=== PATIENT | female | born 1990 | race Caucasian/White ===

== ENCOUNTER 2018-12-06 06:30 | Inpatient (IN) ==
--- NOTE | 2018-12-06 07:38 | ED ---
HPI General Chief Complaint: Psychiatric Symptoms Stated Complaint: vol psych eval Time Seen by Provider: 12/06/18 07:20 History of Present Illness HPI Narrative: This is a 28-year-old female with history of reported depression , presents here today after taking multiple pills including Lorazepam in order to harm herself. Patient states she was trying to kill herself. She reportedly states she is willing to be evaluated voluntarily. States last night around 9 PM she took multiple pills including lorazepam and pain pills. She states she was intensely trying to hurt herself. She reports that she is got multiple issues happening to her right now that have caused her to try to take her life. She reports that she is previously tried to hurt herself in the past. There are no other complaints at the time of examination. Related Data Home Medications Medication Instructions Recorded Confirmed cariprazine [Vraylar] 3 mg PO DAILY 12/06/18 12/06/18 clomipramine 75 mg PO DAILY 12/06/18 12/06/18 cyclobenzaprine 10 mg PO TID 12/06/18 12/06/18 lisdexamfetamine [Vyvanse] 70 mg PO DAILY 12/06/18 12/06/18 lorazepam [Ativan] 0.5 mg PO TID 12/06/18 12/06/18 naproxen 500 mg PO BID PRN 12/06/18 12/06/18 Allergies Allergy/AdvReac Type Severity Reaction Status Date / Time latex Allergy Severe Rash, Verified 12/06/18 06:35 Localized shellfish derived Allergy Anaphylaxis Verified 12/06/18 07:15 DAIRY PRODUCTS AdvReac Severe Shortness Uncoded 12/06/18 06:35 of Breath Review of Systems ROS: all other systems reviewed are negative Constitutional Reports system reviewed and no additional complaints, except as docu Eyes Reports system reviewed and no additional complaints, except as docu ENT Reports system reviewed and no additional complaints, except as docu Cardiovascular Reports system reviewed and no additional complaints, except as docu Respiratory Reports system reviewed and no additional complaints, except as docu Gastrointestinal Reports system reviewed and no additional complaints, except [facility] Genitourinary Reports system reviewed and no additional complaints, except as [facility] Musculoskeletal Reports system reviewed and no additional complaints, except as [facility] Neurologic Reports system reviewed and no additional complaints, [facility] Medical History Medical History Acute (undifferentiated) schizophrenia (Acute) Adult ADHD (Acute) FH: cholecystectomy (Acute) Herniated disc (Acute) Irritable bowel syndrome (Acute) Obsessive compulsive disorder (Acute) PTSD (post-traumatic stress disorder) (Acute) Sciatic nerve pain (Acute) Scoliosis (Acute) Surgical History Surgical History History of tonsillectomy (Acute) Social History Social History Substance History: Active Abuse Second Hand Smoke Exposure: No Smoking Status: Never smoker How Often Do You Have a Drink Containing Alcohol: Monthly or less Recent Travel in [facility] within the Last 8 Weeks: No Recent Out of Country Travel within the Last 8 Weeks: No Substance Abuse Detail Marijuana: Substance Use Status: Active Route Used Substance Abuse: Inhalation Immunization History Tetanus Immunization: >5 Years Exam Narrative Exam Narrative: GENERAL: Well-developed well-nourished female in no acute respiratory distress. Patient is awake alert answering questions appropriately. SKIN: Focused skin assessment warm/dry. HEAD: Atraumatic. Normocephalic. EYES: Pupils equal and round. No scleral icterus. No injection or drainage. ENT: No nasal bleeding or discharge. Mucous membranes pink and moist. NECK: Trachea midline. Supple. CARDIOVASCULAR: Regular rate and rhythm. No murmur appreciated. RESPIRATORY: No accessory muscle use. Clear to auscultation. Breath sounds equal bilaterally. GASTROINTESTINAL: Abdomen soft, non-tender, nondistended. Hepatic and splenic margins not palpable. MUSCULOSKELETAL: No obvious deformities. No clubbing. No cyanosis. No edema. NEUROLOGICAL: Awake and alert. No obvious cranial nerve deficits. Motor grossly within normal limits. Normal speech. Course Initial Documented Vital Signs Temperature 97.1 F L 12/06/18 06:35 Pulse Rate 92 H 12/06/18 06:35 Respiratory Rate 14 12/06/18 06:35 Blood Pressure 117/79 12/06/18 06:35 Pulse Oximetry 100 12/06/18 06:35 Last Documented Vital Signs Temperature 97.1 F L 12/06/18 06:35 Pulse Rate 92 H 12/06/18 06:35 Respiratory Rate 14 12/06/18 06:35 Blood Pressure 117/79 12/06/18 06:35 Pulse Oximetry 100 12/06/18 06:35 Medical Decision Making MDM Narrative Medical decision making narrative: 28-year-old female presents today after intentional ingestion of multiple medications including lorazepam. Patient states she was trying to kill herself. Patient is awake alert appropriate. Poison control was notified and recommended repeat EKG and 2 hours and observation. Patient will be medically cleared. She has been placed on a Lin act by this physician despite her being willing to voluntarily be evaluated. Concern is that she may change her mind and given her attempt, she would need to be evaluated by psychiatry. Medical Screen Exam Complete: Yes Emergency Medical Condition: Yes Differential Diagnosis Differential Diagnosis: Some overdose versus suicidal ideation versus acute life stressors Lab Data Result diagrams: 12/06/18 07:27 12/06/18 07:27 Lab Results 12/06/18 12/06/18 12/06/18 Range/Units 07:27 07:27 07:27 WBC 5.9 (4.0-11.0) th/mm3 RBC 4.05 (4.00-5.30) mil/mm3 Hgb 12.4 (11.6-15.3) gm/dL Hct 36.7 (35.0-46.0) % MCV 90.6 (80.0-100.0) fL MCH 30.7 (27.0-34.0) pg MCHC 33.9 (32.0-36.0) % RDW 12.6 (11.6-17.2) % Plt Count 199 (150-450) th/mm3 MPV 8.2 (7.0-11.0) fL Neut % (Auto) 55.3 (16.0-70.0) % Lymph % (Auto) 36.2 (9.0-44.0) % [place] % (Auto) 7.6 (0.0-8.0) % Eos % (Auto) 0.2 (0.0-4.0) % Baso % (Auto) 0.7 (0.0-2.0) % Neut # (Auto) 3.2 (1.8-7.7) th/mm3 Lymph # (Auto) 2.1 (1.0-4.8) th/mm3 [place] # (Auto) 0.4 (0.0-0.9) th/mm3 Eos # (Auto) 0.0 (0.0-0.4) th/mm3 Baso # (Auto) 0.0 (0.0-0.2) th/mm3 WBC Differential . Differential Comment Auto diff final Sodium 142 (136-145) meq/L Potassium 4.5 (3.5-5.1) meq/L Chloride 108 H (98-107) meq/L Carbon Dioxide 28.9 (21.0-32.0) meq/L Anion Gap 5 (5-15) meq/L BUN 4 L (7-18) mg/dL Creatinine 0.64 (0.50-1.00) mg/dL Estimated GFR Greater than 89 (>89) mL/min Random Glucose 82 (74-106) mg/dL Calcium 8.6 (8.5-10.1) mg/dL Magnesium 2.1 (1.5-2.5) mg/dL Total Bilirubin 0.6 (0.2-1.0) mg/dL AST 6 L (15-37) U/L ALT 12 (10-53) U/L Alkaline Phosphatase 53 (45-117) U/L Total Protein 6.5 (6.4-8.2) g/dL Albumin 4.0 (3.4-5.0) g/dL TSH 3.020 (0.358-3.740) uIU/mL Salicylates Less than 1.7 L (2.8-20.0) mg/dL Urine Opiates Screen (Neg) Acetaminophen Less than 2.0 L (10.0-30.0) mcg/mL Ur Barbiturates Screen (Neg) Ur Amphetamines Screen (Neg) U Benzodiazepines Scrn (Neg) Urine Cocaine Screen (Neg) U Cannabinoids Screen (Neg) Serum Alcohol Less than 3 (0-5) mg/dL 12/06/18 Range/Units 07:51 WBC (4.0-11.0) th/mm3 RBC (4.00-5.30) mil/mm3 Hgb (11.6-15.3) gm/dL Hct (35.0-46.0) % MCV (80.0-100.0) fL MCH (27.0-34.0) pg MCHC (32.0-36.0) % RDW (11.6-17.2) % Plt Count (150-450) th/mm3 MPV (7.0-11.0) fL Neut % (Auto) (16.0-70.0) % Lymph % (Auto) (9.0-44.0) % [place] % (Auto) (0.0-8.0) % Eos % (Auto) (0.0-4.0) % Baso % (Auto) (0.0-2.0) % Neut # (Auto) (1.8-7.7) th/mm3 Lymph # (Auto) (1.0-4.8) th/mm3 [place] # (Auto) (0.0-0.9) th/mm3 Eos # (Auto) (0.0-0.4) th/mm3 Baso # (Auto) (0.0-0.2) th/mm3 WBC Differential Differential Comment Sodium (136-145) meq/L Potassium (3.5-5.1) meq/L Chloride (98-107) meq/L Carbon Dioxide (21.0-32.0) meq/L Anion Gap (5-15) meq/L BUN (7-18) mg/dL Creatinine (0.50-1.00) mg/dL Estimated GFR (>89) mL/min Random Glucose (74-106) mg/dL Calcium (8.5-10.1) mg/dL Magnesium (1.5-2.5) mg/dL Total Bilirubin (0.2-1.0) mg/dL AST (15-37) U/L ALT (10-53) U/L Alkaline Phosphatase (45-117) U/L Total Protein (6.4-8.2) g/dL Albumin (3.4-5.0) g/dL TSH (0.358-3.740) uIU/mL Salicylates (2.8-20.0) mg/dL Urine Opiates Screen Neg (Neg) Acetaminophen (10.0-30.0) mcg/mL Ur Barbiturates Screen Neg (Neg) Ur Amphetamines Screen Neg (Neg) U Benzodiazepines Scrn Neg (Neg) Urine Cocaine Screen Neg (Neg) U Cannabinoids Screen Neg (Neg) Serum Alcohol (0-5) mg/dL Discharge Plan Discharge Disposition Patient Disposition: ED Admit(ED Internal Use Only) Discharge Details Diagnosis: Intentional overdose of drug in tablet form, Suicidal ideation Physicians Team ED Provider: Ricardo Basurto Rxs /Orders / Referrals /Forms Prescriptions: No Action cyclobenzaprine 10 mg Tablet 10 mg PO TID RF: 0 clomipramine 75 mg Capsule 75 mg PO DAILY RF: 0 lorazepam [Ativan] 0.5 mg Tablet 0.5 mg PO TID RF: 0 lisdexamfetamine [Vyvanse] 70 mg Capsule 70 mg PO DAILY RF: 0 naproxen 500 mg Tablet 500 mg PO BID PRN (Reason: Pain) RF: 0 cariprazine [Vraylar] 3 mg Capsule 3 mg PO DAILY RF: 0 Status ED Status: With Doctor
[2018-12-06 07:39] LABS: Baso % (Auto) 0.7 % (0.0-2.0); Eos % (Auto) 0.2 % (0.0-4.0); Hematocrit 36.7 % (35.0-46.0); Hemoglobin 12.4 gm/dL (11.6-15.3); Lymph # (Auto) 2.1 th/mm3 (1.0-4.8); Lymph % (Auto) 36.2 % (9.0-44.0); Mean Corpuscular HGB Conc 33.9 % (32.0-36.0); Mean Corpuscular Hemoglobin 30.7 pg (27.0-34.0); Mean Corpuscular Volume 90.6 fL (80.0-100.0); Mean Platelet Volume 8.2 fL (7.0-11.0); Mono # (Auto) 0.4 th/mm3 (0.0-0.9); Mono % (Auto) 7.6 % (0.0-8.0); Neut # (Auto) 3.2 th/mm3 (1.8-7.7); Neut % (Auto) 55.3 % (16.0-70.0); Platelet Count 199 th/mm3 (150-450); Red Blood Count 4.05 mil/mm3 (4.00-5.30); Red Cell Distribution Width 12.6 % (11.6-17.2); White Blood Count 5.9 th/mm3 (4.0-11.0)
[2018-12-06 08:16] LABS: Alanine Aminotransferase 12 U/L (10-53); Anion Gap 5 meq/L (5-15); Aspartate Aminotransferase 6 U/L (15-37); Blood Urea Nitrogen 4 mg/dL (7-18); Calcium 8.6 mg/dL (8.5-10.1); Carbon Dioxide 28.9 meq/L (21.0-32.0); Chloride 108 meq/L (98-107); Glomerular Filtration Rate Greater Than 89 mL/min (>89); Glucose,Random 82 mg/dL (74-106); Magnesium 2.1 mg/dL (1.5-2.5); Potassium 4.5 meq/L (3.5-5.1); Sodium 142 meq/L (136-145)
[2018-12-06 08:19] LABS: Amphetamine Screen,Urine Neg (Neg); Barbiturate Screen,Urine Neg (Neg); Cannabinoid Screen,Urine Neg (Neg); Cocaine Screen,Urine Neg (Neg)
[2018-12-06 08:21] LABS: Opiate Screen,Urine Neg (Neg)
[2018-12-06 08:24] LABS: Alkaline Phosphatase 53 U/L (45-117); Total Protein 6.5 g/dL (6.4-8.2)
--- NOTE | 2018-12-06 14:32 | ECG ---
Date Performed: 12/06/2018 Time Performed: 07:20:33 PTAGE: 28 years EKG: Sinus rhythm WITH SINUS ARRHYTHMIA WITH SHORT NC INTERVAL BORDERLINE ECG NO PREVIOUS TRACING DOCTOR: Bethany Sherwood Interpretating Date/Time 12/06/2018 14:30:14
--- NOTE | 2018-12-06 14:44 | ECG ---
Date Performed: 12/06/2018 Time Performed: 09:35:13 PTAGE: 28 years EKG: Sinus rhythm WITH SINUS ARRHYTHMIA WITH SHORT OK INTERVAL BORDERLINE ECG Since the PREVIOUS TRACING , no significant change noted PREVIOUS TRACIN12/06/2018 07.20 DOCTOR: Bethany Sherwood Interpretating Date/Time 12/06/2018 14:39:08
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
[2018-12-06] MEDS ORDERED: Aluminum/Magnesium/Simethacone Susp 30 ML UDC PO PRN (17:08)
[2018-12-06] MEDS ORDERED: Naproxen 500 MG Tablet PO PRN (17:28)
[2018-12-07] MEDS ORDERED: CARIPRAZINE 3 MG PO SCH (09:00)
[2018-12-07] MEDS ORDERED: CLOMIPRAMINE 75 MG PO SCH ×2 (09:00→14:15)
[2018-12-07 10:22] LABS: Anion Gap 5 meq/L (5-15); Blood Urea Nitrogen 6 mg/dL (7-18); Calcium 8.5 mg/dL (8.5-10.1); Carbon Dioxide 29.2 meq/L (21.0-32.0); Chloride 105 meq/L (98-107); Cholesterol 127 mg/dL (120-200); Glomerular Filtration Rate Greater Than 89 mL/min (>89); Glucose,Random 114 mg/dL (74-106); Potassium 4.8 meq/L (3.5-5.1); Sodium 139 meq/L (136-145)
[2018-12-07 10:29] LABS: Chol/HDL Ratio 2.28 Ratio; HDL Cholesterol 55.7 mg/dL (40.0-60.0); LDL Cholesterol,Calculated 53 mg/dL (0-99); Triglycerides 92 mg/dL (42-150)
[2018-12-07 12:58] LABS: Hemoglobin A1c 5.2 % (4.3-6.0)
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
[2018-12-07] MEDS ORDERED: LORazepam 1 MG Tablet PO PRN (14:01)
[2018-12-07] MEDS ORDERED: Haloperidol Inj 5 MG/ML Ampul IV.PUSH PRN (14:01)
[2018-12-07 16:35] VITALS: RESP 18
[2018-12-07] MEDS: CLOMIPRAMINE 75 MG PO SCH ×2 (22:07→22:16)
[2018-12-08 05:42] VITALS: O2SAT 100
--- NOTE | 2018-12-08 08:53 | P.DIET ---
Nutritional Evaluation Type of nutrition evaluation: initial Nutrition consult regarding: Diet Evaluation Nutrition screening: Weight Loss > 10 lbs Objective - Diagnosis adjustment disorder with depressed mood - Objective Body Mass Index: 15.9 [place] body weight: 47 kg (105lb) % IBW: 81 Body Weight Used for Calculations: Actual (38) Energy Needs - Lower Range (kCal/kg): 35 Energy Needs - Upper Range (kCal/kg): 40 Lower Limit kCal/kg (kCals): 1,330 Upper Limit kCal/kg (kCals): 1,520 Lower Limit Protein Factor (Grams per Kg): 1.0 Upper Limit Protein Factor (Grams per Kg): 1.2 Lower Protein Needs (Protein): 38 Upper Protein Needs (Protein): 46 Dietitian Reviewed in Medical Record: Current diet, Curent medications, Intake & Output, Labs, Medical history Diet Order: Regular Oral Diet Intake Amount: Excellent 90%+ Objective Comments: PMH; depression, multiple suicide attempts Labs; nutritionally unremarkable Medications; reviewed Assessment Assessment: Weight loss screen; Pt presents to ED after taking multiple pills with intention of killing herself and is currently at nutritional risk related to unplanned weight loss. Pt reports decreased appetite and energy level for several days. Currently she is underweight with a BMI of 15.9 and CBW of 38kg. Ordered for regular diet with PO intake at 100%. Will send pt Ensure Enlive supplement in efforts to minimize further weight loss. Each can of Ensure Enlive will provide 350kcal and 20g protein. Labs and medications reviewed, will continue to monitor PO intake, supplement acceptance and weight. Recommendations: 1. Ensure Enlive TID 2. Encourage PO intake Dietitian to Monitor: Lab values, Supplement acceptance, Intake & Output, Diet tolerance, Weight change, PO Intake, Medical course
[2018-12-08] MEDS ORDERED: CARIPRAZINE 3 MG PO SCH (09:00)
[2018-12-08] MEDS: CARIPRAZINE 3 MG PO SCH (09:12)
[2018-12-08] MEDS: CLOMIPRAMINE 75 MG PO SCH ×2 (09:12→21:44)
--- NOTE | 2018-12-08 09:38 | P.PNPSY ---
Subjective Chief Complaint: OD Remarks: Reviewed electronic record and discussed with nursing staff. Patient in day room eating breakfast. She is discharge focused and asking the nursing staff for access to her phone to obtain numbers to call her friends. Patient expressed that she feels she is better and wants to be discharged. She currently taking Clomipramine ( Anafranil) that are her own home meds. She states that this medication works for her and she does not need anything else. Endorses that she is sleeping and eating well . States that she is not longer feeling suicidal. She feels that being around other people have helped her work through her emotions. Review of Systems All other systems reviewed negative except as stated in HPI Mental Status Examination Appearance: Disheveled, Other (Multiple tattoos and facial piercings) Consciousness: Alert Orientation: x4 Motor Activity: Normal gait Speech: Unremarkable Language: Adequate Fund of Knowledge: Adequate Attention and Concentration: Easily distracted Memory: Unremarkable Mood: Sad Affect: Appropriate Thought Process & Associations: Intact, Logical, Goal directed Thought Content: Appropriate Hallucination Type: None Delusion Type: None Suicidal Ideation: No Suicidal Plan: No Suicidal Intention: No Homicidal Ideation: No Homicidal Plan: No Homicidal Intention: No Insight: Fair Judgment: Impulsive Assessment and Plan - Assessment (1) Anxiety disorder Code(s): F41.9 - Anxiety disorder, unspecified Status: Acute (2) Depressive disorder Code(s): F32.9 - Major depressive disorder, single episode, unspecified Status : Acute - Plan Plan: 12/08/18 continue current treatment plan. Attending will be back on Sunday and patient will be able to discuss discharge planning. 12/07/18We will restart patient's home medications. She is resistant to any changes. ciwa scale. Consider borderline personality disorder in the differential Justification for Continued Inpatient Stay: Moving patient to a less restrictive environment may result in her decompensation.
[2018-12-08] MEDS: LORazepam 0.5 MG Tablet PO PRN (11:55)
[2018-12-08 17:45] VITALS: TEMP 98.6
[2018-12-09 06:12] VITALS: BP 102/62; PULSE 86
[2018-12-09] MEDS: CLOMIPRAMINE 75 MG PO SCH (08:52)
[2018-12-09] MEDS: CARIPRAZINE 3 MG PO SCH (08:52)
[2018-12-09] MEDS: LORazepam 0.5 MG Tablet PO PRN (09:28)
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
== END 2018-12-09 17:15 | disposition home or self-care (01) | DRG 881 ==
LOC: NEPC 06:30 → NEDA 17:23 → H260 19:39
PROVIDERS: ADMIT Psychiatry & Neurology Child & Adolescent Psychiatry; ATTEND Psychiatry & Neurology Child & Adolescent Psychiatry